=== PATIENT | male | born 1945 | race Caucasian/White ===

== ENCOUNTER 2018-11-20 20:34 | Emergency (ER) | payer BC ==
[~2018-11-20] VITALS: Ht 165.1 cm; Wt 71.0 kg
[2018-11-21] MEDS ORDERED: ACETAMINOPHEN 325MG TABLET PO ONE (03:00)
[2018-11-21 03:19] LABS: HEMATOCRIT. 47.7 % (42.0-52.0); HEMOGLOBIN. 16.4 g/dL (14.0-18.0); MEAN CORPUSCULAR HEMOGLOBIN 31.9 pg (28.0-32.0); MEAN CORPUSCULAR VOLUME 92.6 fL (80.0-94.0); MEAN PLATELET VOLUME 7.7 fl (7.4-10.4); PLATELET 195 x1000/uL (130-400); RED BLOOD CELL COUNT 5.16 mill/uL (4.7-6.1); RED CELL DISTRIBUTION WIDTH 12.8 % (11.6-14.6)
[2018-11-21 03:28] LABS: CHLORIDE 105 mEq/L (98-107)
[2018-11-21 06:59] LABS: CLARITY URINE CLEAR (CLEAR); COLOR URINE YELLOW (YELLOW); KETONES URINE 1+ (NEGATIVE); LEUKOCYTE ESTERASE URINE NEGATIVE (NEGATIVE); NITRITE URINE NEGATIVE (NEGATIVE); OCCULT BLOOD URINE 3+ (NEGATIVE); PH URINE 5.5 (4.5-8.0); PROTEIN URINE NEGATIVE (NEGATIVE); SPECIFIC GRAVITY URINE 1.014 (1.005-1.030); UROBILINOGEN URINE 0.2 E.U./dL (0.2-1.0)
[2018-11-21 08:35] VITALS: BP 160/79
[2018-11-21 09:45] LABS: PLATELET ESTIMATE NORMAL
== END 2018-11-21 08:55 | disposition home or self-care (01) ==
LOC: ER 21:17
DX: M54.5 Low back pain (principal); M48.07 Spinal stenosis, lumbosacral region; I10 Essential (primary) hypertension; Z98.890 Other specified postprocedural states; Z86.19 Personal history of other infectious and parasitic diseases
CPT/HCPCS: 36415; 51702; 72148; 99284